=== PATIENT | female | born 1995 | race Caucasian/White ===

== ENCOUNTER 2019-04-06 13:43 | Emergency (ER) | payer BC, SELFPAY ==
[~2019-04-06] VITALS: Ht 165.1 cm; Wt 59.1 kg
[2019-04-06 13:44] VITALS: BP 114/66
--- NOTE | 2019-04-06 15:04 | REP ---
NASAL BONES: Four views of the nasal bones performed. No fracture is seen of the nasal bones. Maxillary spines appear intact. Visualized paranasal sinuses demonstrate no air fluid levels. IMPRESSION: No radiographic evidence of nasal bone fracture. Electronically Signed by Galen Dasilva MD 04/06/2019 04:36 P
[2019-04-06] MEDS ORDERED: CIPR-249 PO (15:19)
== END 2019-04-06 15:40 | disposition home or self-care (01) ==
LOC: M ED 13:43
DX: S00.83XA Contusion of other part of head, initial encounter (principal); Y04.8XXA Assault by other bodily force, initial encounter; Y92.89 Other specified places as the place of occurrence of the external cause; N39.0 Urinary tract infection, site not specified

== ENCOUNTER 2019-04-08 18:55 | Emergency (ER) | payer SELFPAY ==
[~2019-04-08] VITALS: Ht 165.1 cm; Wt 59.1 kg
[~2019-04-08 18:55] MED LIST: CIPR-249 PO
[2019-04-08] MEDS ORDERED: METOCLOPRAMIDE INJ 10MG/2ML VIAL (J2765) IV ONE (20:15)
[2019-04-08] MEDS ORDERED: NS 1,000 ML IV ONE (20:15)
[2019-04-08 20:31] LABS: BASO % 0.2 % (0.0-1.0); EOS % 0.3 % (0.0-3.0); HEMATOCRIT 39.6 % (36.0-47.0); HEMOGLOBIN 13.5 g/dl (12.0-15.5); LYMPH # 0.8 10^3/uL (1.5-6.5); LYMPH % 8.3 % (24.0-44.0); MEAN CORPUSCULAR HEMOGLOBIN 31.9 pg (27.0-33.0); MEAN CORPUSCULAR HGB CONC 34.1 g/dl (32.0-36.5); MEAN CORPUSCULAR VOLUME 93.6 fl (80.0-96.0); MONO # 1.3 10^3/uL (0.0-0.8); MONO % 13.7 % (0.0-5.0); NEUTROPHILS # 7.2 10^3/uL (1.8-7.7); NEUTROPHILS % 77.1 % (36.0-66.0); PLATELET COUNT, AUTOMATED 253 10^3/uL (150-450); RED BLOOD COUNT 4.23 10^6/uL (4.00-5.40); WHITE BLOOD COUNT 9.4 10^3/uL (4.0-10.0)
[2019-04-08] MEDS ORDERED: REGL10TA6 PO (21:38)
[2019-04-08] MEDS ORDERED: KEFL500C17 PO (21:38)
[2019-04-08 21:55] VITALS: BP 96/68
== END 2019-04-08 21:57 | disposition home or self-care (01) ==
LOC: M ED 18:55
DX: N10 Acute pyelonephritis (principal); R11.2 Nausea with vomiting, unspecified
CPT/HCPCS: 80047; 81001; 85025; 96361; 96374; 99284; J2765

== ENCOUNTER 2020-03-12 18:32 | Emergency (ER) | payer MEDICAID, OTHER, SELFPAY ==
[~2020-03-12] VITALS: Ht 165.1 cm; Wt 66.9 kg
[~2020-03-12 18:32] MED LIST changes: +KEFL500C17 PO; +REGL10TA6 PO
[2020-03-12] MEDS ORDERED: GI COCKTAIL 50ML BTL(HYOSCYAMINE/MAALOX/LIDOCAINE VISCOUS)(1:3:1) PO ONE (19:00)
[2020-03-12] MEDS ORDERED: METOCLOPRAMIDE INJ 10MG/2ML VIAL (J2765 PER 1) IV ONE (19:00)
[2020-03-12 19:11] LABS: BASO % 0.1 % (0.0-1.0); EOS # 0.1 10^3/uL (0.0-0.5); EOS % 0.8 % (0.0-3.0); HEMATOCRIT 36.5 % (36.0-47.0); HEMOGLOBIN 12.5 g/dl (12.0-15.5); LYMPH # 2.5 10^3/uL (1.5-5.0); LYMPH % 33.1 % (24.0-44.0); MEAN CORPUSCULAR HEMOGLOBIN 31.2 pg (27.0-33.0); MEAN CORPUSCULAR HGB CONC 34.2 g/dl (32.0-36.5); MONO # 0.6 10^3/uL (0.0-0.8); MONO % 8.1 % (0.0-5.0); NEUTROPHILS # 4.4 10^3/uL (1.5-8.5); NEUTROPHILS % 57.6 % (36.0-66.0); PLATELET COUNT, AUTOMATED 246 10^3/uL (150-450); RED BLOOD COUNT 4.01 10^6/uL (4.00-5.40); WHITE BLOOD COUNT 7.7 10^3/uL (4.0-10.0)
[2020-03-12 19:48] LABS: ALBUMIN 4.1 GM/DL (3.2-5.2); BILIRUBIN,DIRECT 0.1 MG/DL (0.0-0.2); BILIRUBIN,TOTAL 0.5 MG/DL (0.2-1.0); TOTAL PROTEIN 7.2 GM/DL (6.4-8.2)
--- NOTE | 2020-03-12 20:04 | REPVR ---
PROCEDURE INFORMATION: Exam: US Abdomen Limited, Right Upper Quadrant Exam date and time: 03/12/2020 7:36 PM Age: 24 years old Clinical indication: Abdominal pain; Acute; ; Additional info: Ruq/epigastric pain, +preg TECHNIQUE: Imaging protocol: Real-time ultrasound of the abdomen with image documentation. Examination was focused on the right upper quadrant. COMPARISON: No relevant prior studies available. FINDINGS: Liver: Normal. No masses. Gallbladder: Gallbladder is relatively contracted. No gallstones seen Common bile duct: Common bile duct measures 0.44 cm. Pancreas: Pancreatic tail is not well seen due to bowel gas. The head and neck appear normal Right kidney: Right kidney measures 10.7 x 5.2 x 4.9 cm. Lower pole of the right kidney not well seen due to bowel gas. No hydronephrosis in the visualized portion of the right kidney IMPRESSION: 1. No acute fine Electronically signed by: Kasey Bell On 03/12/2020 20:04:39 PM
[2020-03-12] MEDS ORDERED: REGL10TA6 PO (20:19)
[2020-03-12 20:29] VITALS: BP 118/54
== END 2020-03-12 20:33 | disposition home or self-care (01) ==
LOC: M ED 18:32
DX: O99.89 Other specified diseases and conditions complicating pregnancy, childbirth and the puerperium (principal); R10.13 Epigastric pain; R11.0 Nausea; Z3A.01 Less than 8 weeks gestation of pregnancy
CPT/HCPCS: 76705; 80047; 80076; 83690; 84702; 85025; 96374; 99284; J2765

== ENCOUNTER → 2020-03-29 | Outpatient (REF) | payer OTHER ==
[~2020-03-29] MED LIST changes: +AUGM875T28 PO; +HYDR-3713 PO
[2020-03-29 18:27] LABS: HEMATOCRIT 35.4 % (36.0-47.0); HEMOGLOBIN 12.3 g/dl (12.0-15.5); MEAN CORPUSCULAR HEMOGLOBIN 31.7 pg (27.0-33.0); MEAN CORPUSCULAR HGB CONC 34.7 g/dl (32.0-36.5); MEAN CORPUSCULAR VOLUME 91.2 fl (80.0-96.0); PLATELET COUNT, AUTOMATED 294 10^3/uL (150-450); RED BLOOD COUNT 3.88 10^6/uL (4.00-5.40); WHITE BLOOD COUNT 6.8 10^3/uL (4.0-10.0)
[2020-03-29 19:44] LABS: HCG, SERUM QUANTITATIVE 99629 MIU/ML
[2020-03-30 10:32] LABS: HEPATITIS B SURFACE ANTIGEN NEGATIVE (NEGATIVE)
[2020-03-30 10:59] LABS: HEPATITIS C VIRUS ABY INDEX 0.1 INDEX (<0.8)
[2020-03-30 11:00] LABS: HIV 1&2 SCREEN CENTAUR NEGATIVE (NEGATIVE)
== END ==
LOC: M LAB REF 16:43
PROVIDERS: ATTEND Obstetrics & Gynecology
DX: O36.80X0 Pregnancy with inconclusive fetal viability, not applicable or unspecified (principal)

== ENCOUNTER → 2020-04-04 | Outpatient (CLI) | payer MEDICAID, OTHER ==
--- NOTE | 2020-04-04 10:29 | REP ---
REASON: supervision of normal . Transvesical imaging was obtained. Within the uterus, there is an anechoic structure with increased echoes surrounding it consistent with a decidual reaction. Within the gestational sac, there is echogenic material consistent with a pole, the mean crown-rump length measurement of which is consistent with a 0-tfqg-7-day gestational age. Based on that the estimated date of delivery is 11/07/2020. Doppler interrogation of the pole shows a heart rate of 172 beats per minute. No chorionic or subchorionic abnormality was noted. Evaluation of the maternal adnexal spaces showed no abnormalities. The technologist has made note on the worksheet that the gestational sac appears to be in the lower uterine segment. IMPRESSION: Early OB ultrasound as described above. Recommended followup.
== END ==
LOC: M WHC 06:50
PROVIDERS: ATTEND Advanced Practice Midwife
DX: O36.80X0 Pregnancy with inconclusive fetal viability, not applicable or unspecified (principal); Z3A.09 9 weeks gestation of pregnancy

== ENCOUNTER 2020-06-23 23:31 | Emergency (ER) | payer OTHER ==
[~2020-06-23] VITALS: Ht 167.6 cm; Wt 68.8 kg
[2020-06-23 23:31] VITALS: BP 123/77
[~2020-06-23 23:31] MED LIST changes: -AUGM875T28 PO; -HYDR-3713 PO
[2020-06-24] MEDS ORDERED: AUGMENTIN 875 MG TAB PO ONE (00:30)
[2020-06-24] MEDS ORDERED: NORCO 5/325MG TABLET (BULK FOR ED) PO ONE (00:30)
[2020-06-24] MEDS ORDERED: AUGM875T28 PO (00:37)
[2020-06-24] MEDS ORDERED: HYDR-3713 PO (00:37)
== END 2020-06-24 00:51 | disposition home or self-care (01) ==
LOC: M ED 23:31
DX: K02.9 Dental caries, unspecified (principal); K04.7 Periapical abscess without sinus; Z79.899 Other long term (current) drug therapy

== ENCOUNTER → 2020-08-10 | Outpatient (CLI) | payer OTHER ==
[~2020-08-10] MED LIST changes: +AUGM875T28 PO; +HYDR-3713 PO
[2020-08-10 11:27] LABS: HEMATOCRIT 34.6 % (36.0-47.0); HEMOGLOBIN 11.3 g/dl (12.0-15.5); MEAN CORPUSCULAR HGB CONC 32.7 g/dl (32.0-36.5); MEAN CORPUSCULAR VOLUME 95.1 fl (80.0-96.0); PLATELET COUNT, AUTOMATED 305 10^3/uL (150-450); RED BLOOD COUNT 3.64 10^6/uL (4.00-5.40); WHITE BLOOD COUNT 7.7 10^3/uL (4.0-10.0)
== END ==
LOC: M WUC 08:17
PROVIDERS: ATTEND Advanced Practice Midwife
DX: Z34.82 Encounter for supervision of other normal pregnancy, second trimester (principal); Z3A.00 Weeks of gestation of pregnancy not specified

== ENCOUNTER → 2020-08-17 | Outpatient (CLI) | payer OTHER | LOC: M LAB 08:21 | PROVIDERS: ATTEND Obstetrics & Gynecology | DX: R73.02 Impaired glucose tolerance (oral) (principal) ==

== ENCOUNTER → 2020-10-06 | Outpatient (REF) | payer OTHER | LOC: M LAB REF 12:45 | PROVIDERS: ATTEND Advanced Practice Midwife | DX: Z34.83 Encounter for supervision of other normal pregnancy, third trimester (principal) ==

== ENCOUNTER → 2020-10-27 | Outpatient (REF) | payer OTHER | LOC: M LAB REF 12:37 | PROVIDERS: ATTEND Obstetrics & Gynecology | DX: Z34.83 Encounter for supervision of other normal pregnancy, third trimester (principal) ==

== ENCOUNTER 2020-11-09 20:29 | Emergency (ER) | payer OTHER ==
[~2020-11-09] VITALS: Ht 167.6 cm; Wt 63.6 kg
--- OUTSIDE RECORDS SUMMARY | 2020-11-09 20:34 | CCD ---
Author Author [facility] Organization [facility] Address Unknown Phone Unavailable Care Team Providers Care Speech Therapist Early Intervention Name Role Phone Tiffany PARMAR Unavailable Unavailable Dille, E Seema DDS Unavailable Unavailable Dille, E Seema DDS Unavailable Unavailable Dille, E Seema DDS Unavailable Unavailable Dille, E Seema DDS Unavailable Unavailable NO, PCP Unavailable Unavailable Re-disclosure Warning The records that you are about to access may contain information from federally-assisted alcohol or drug abuse programs. If such information is present, then the following federally mandated warning applies: This information has been disclosed to you from records protected by federal confidentiality rules (42 CFR part 2). The federal rules prohibit you from making any further disclosure of this information unless further disclosure is expressly permitted by the written consent of the person to whom it pertains or as otherwise permitted by 42 CFR part 2. A general authorization for the release of medical or other information is NOT sufficient for this purpose. The Federal rules restrict any use of the information to criminally investigate or prosecute any alcohol or drug abuse patient.The records that you are about to access may contain highly sensitive health information, the redisclosure of which is protected by Article 27-F of the [facility] Public Health law. If you continue you may have access to information: Regarding HIV / AIDS; Provided by facilities licensed or operated by the [facility] Office of Mental Health; or Provided by the [facility] Office for People With Developmental Disabilities. If such information is present, then the following [facility] mandated warning applies: This information has been disclosed to you from confidential records which are protected by state law. State law prohibits you from making any further disclosure of this information without the specific written consent of the person to whom it pertains, or as otherwise permitted by law. Any unauthorized further disclosure in violation of state law may result in a fine or residential sentence or both. A general authorization for the release of medical or other information is NOT sufficient authorization for further disc losure. Allergies and Adverse Reactions Type Description Substance Reaction Status Data Source(s ) No Known Drug Allergies No Known Drug Allergies [facility] No Known Environmental Allergies No Known Environmental Al lergies [facility] No Known Food Allergies No Known Food Allergies [facility] Encounters Encounter Providers Location Date Indications Data Source(s ) Inpatient Attender: MARY Gutierrezant: PCP NO 10/31/2020 08:06:00 AM [facility] - 11/03/2020 03:15:00 PM [facility] Patient discharged. Outpatient Attender: MARY Hunter: PCP NO 09/26/2020 10:47:00 AM [facility] - 09/26/2020 11:47:00 AM [facility] Outpatient Attender: Seema DE LA ROSA 07/29/2020 09:42:00 A M [facility] Outpatient Attender: Seema DE LA ROSA 04/05/2020 11:03:00 A M [facility] Outpatient Attender: Seema CARNES 04/01/2020 12:02:18 A M [facility] Outpatient Attender: Seema DE LA ROSA 03/31/2020 04:05:[address] [facility] Outpatient Attender: Seema DE LA ROSA 03/31/2020 04:02:00 P M [facility] Outpatient Attender: Seema DE LA ROSA 03/31/2020 03:44:[address] [facility] Outpatient Attender: Seema DE LA ROSA 03/31/2020 03:44:[address] [facility] Outpatient Attender: Seema Sultana DDS [facility] 03/31/2020 03:42:04 P M EDT [facility] Outpatient [facility]: [facility] 03/31/2020 03:41:02 P M EDT [facility] Outpatient Attender: Seema Sultana DDS [facility] 03/31/2020 03:02:05 P M EDT [facility] Outpatient Attender: [facility] 03/31/2020 03:01:01 P M EDT [facility] [address] [address] 01/19/2020 12:00:00 AM EDT eCW1 (Critical access hospital) Insurance Providers Payer name Policy type / Coverage type Policy ID Covered alliance party ID Covered alliance party's relationship to thakkar Policy Thakkar Plan Information [employer] [id number] 2 [id number] [employer] - I/P [id number] 01 [id number] [employer] - O/P [id number] 01 [id number] [place] UNAVAILABLE S UNAVAILABLE HUMANA [place] O [id number] P [id number] [employer] [id number] SP [id number] [facility] [id number] SP [id number] [facility] O [id number] S [id number] Managed Care [facility] Community Plan P [id number] S [id number] Medicaid S [id number] EMEDNY [id number] SP [id number] SELF PAY ONLY [id number] SP [id number] BCBS [facility] [id number] SP [id number] Problems, Conditions, and Diagnoses Code Display Name Description Problem Type Effective Dates Data Source(s) 521.03 DENTAL CARIES EXTENDING INTO PULP DENTAL CARIES EXTEND ING INTO PULP 03/31/2020 03:43:15 PM EDT [facility] [id number] Labor and delivery complicat ed by cord around neck, without compression, not applicable or unspecified Labor and delivery complicated by cord a round neck, without compression, not applicable or unspecified Diagnosis 10/31/2020 08:06:00 AM [facility] A491 Streptococcal infection, unspecified sit e Streptococcal infection, unspecified site Diagnosis 10/31/2020 08:06:00 AM [facility] B009 Herpesviral infection, unspecified Herpesviral i nfection, unspecified Diagnosis 10/31/2020 08:06:00 AM [facility] [id number] 39 weeks gestation of 39 weeks gestation of Diagnosis 10/31/2020 08:06:00 AM [facility] O2343 Unspecified infection of urinary tract i n , third trimester Unspecified infection of urinary tract in , third trimester Diagnosis 10/31/2020 08:06:00 AM [facility] Z370 Single live Single live Diagnosis 10/31/2020 08:06:00 AM [facility] O9852 Other viral diseases complicating childb irth Other viral diseases complicating childbirth Diagnosis 10/31/2020 08:06:00 AM [facility] [id number] Other viral diseases complicating pregna ncy, third trimester Other viral diseases complicating , third trimester Diagnosis 10/31 08:06:00 AM [facility] Z362 Encounter for other screening follow-up Encounter for other screening follow-up Diagnosis 09/26/2020 10:47:00 AM [facility] [id number] Uterine size-date discrepancy, third tri mester Uterine size-date discrepancy, third trimester Diagnosis 09/26/2020 10:47:00 AM [facility] Surgeries/Procedures Procedure Description Date Indications Data Source(s) Delivery of Products of Conception, External Approach Delivery of Products of Conception, External Approach 11/01/2020 12:00:00 AM [facility] Introduction of Anesthetic Agent into Spinal Canal, Pe rcutaneous Approach Introduction of Anesthetic Agent into Spinal Canal, Percutaneous Approac 10/31/2020 12:00:00 AM [facility] Drainage of Amniotic Fluid, Therapeutic from Products of Conception, Via Natural or Artificial Opening Drainage of Amniotic Fluid, Therapeutic from Products of Conception, Via Natural or Artificial Opening 10/31/2020 12:00:00 AM [facility] Introduction of Other Anti-infective int o Peripheral Vein, Percutaneous Approach Introduction of Other Anti-infective int o Peripheral Vein, Percutaneous Approach 10/31/2020 12:00:00 AM [facility] Introduction of Other Therapeutic Substa nce into Female Reproductive, Via Natural or Artificial Opening Introduction of Other Therapeutic Substa nce into Female Reproductive, Via Natural or Artificial Opening 10/31/2020 12:00:00 AM [facility] Monitoring of Products of Conception, Ca rdiac Electrical Activity, External Approach Monitoring of Products of Conception, Ca rdiac Electrical Activity, External Approach 10/31/2020 12:00:00 AM [facility] Results ID Date Data Source [id number] 11/01/2020 05:39:00 PM [facility] Name Value Range Interpretation Code Description Data Yolande rce(s) Supporting Document(s) CBC W/AUTOMATED DIFF [facility] COMPLETE BLOOD COUNT Leukocytes [#/volume] in Blood by Automated count 9.5 10^3/uL 4.2 - 1 1.0 [facility] Erythrocytes [#/volume] in Blood by Automated count 3.46 10^6/uL 4. 20 - 5.40 L [facility] Hemoglobin [Mass/volume] in Blood 9.7 g/dL 12.0 - 16.0 L [facility] Hematocrit [Volume Fraction] of Blood by Automated count 30.0 % 3 7.0 - 47.0 L [facility] Erythrocyte mean corpuscular volume [Entitic volume] by Auto mated count 86.7 fL 81.0 - 101 [facility] Erythrocyte mean corpuscular hemoglobin [Entitic mass] by Automated count 28.0 pg 27.0 - 34.0 [facility] Erythrocyte mean corpuscular hemoglobin concentration [Mass/volume] by Automated count 32.3 g/dL 31.0 - 36.0 [facility] Erythrocyte distribution width [Ratio] by Automated count 12.6 % 11.5 - 14.5 [facility] Platelets [#/volume] in Blood by Automated count 230 10^3/uL 150 - 45 0 [facility] Platelet mean volume [Entitic volume] in Blood by Automated count 10.2 fL 7.4 - 10.4 [facility] Neutrophils/100 leukocytes in Blood by Automated count 70.3 % 37. 0 - 80.0 [facility] Lymphocytes/100 leukocytes in Blood by Manual count 20.0 % 25.0 - 40.0 L [facility] Monocytes/100 leukocytes in Blood by Automated count 9.0 % 3.0 - 8.0 H [facility] Eosinophils/100 leukocytes in Blood by Automated count 0.3 % 0.0 - 7.0 [facility] Basophils/100 leukocytes in Blood by Automated count 0.1 % 0.0 - 2.5 [facility] %IG 0.3 % 0.0 - 0.0 H [facility] Hospit al %NRBC 0.0 % 0.0 - 0.0 [facility] al Neutrophils [#/volume] in Blood by Automated count 6.66 10^3/uL 2.00 - 6.90 [facility] Lymphocytes [#/volume] in Blood by Automated count 1.90 10^3/uL 0.60 - 3.40 [facility] Monocytes [#/volume] in Blood by Automated count 0.85 10^3/uL 0.00 - 0.90 [facility] Eosinophils [#/volume] in Blood by Automated count 0.03 10^3/uL 0.00 - 0.70 [facility] Basophils [#/volume] in Blood by Automated count 0.01 10^3/uL 0.00 - 0.20 [facility] #IG 0.03 10^3/uL 0.00 - 0.10 [facility] ospital #NRBC 0.00 10^3/uL 0.00 - 0.00 [facility] ospital MANUAL DIFF NOT INDICATED [facility] RBC MORPH NOT INDICATED [facility] spital ID Date Data Source [id number] 10/31/2020 11:53:00 AM EST [facility] Name Value Range Interpretation Code Description Data Yolande rce(s) Supporting Document(s) ABO group [Type] in Blood A [facility] Rh [Type] in Blood POSITIVE [facility] AB SCREEN NEGATIVE NORMAL: NEGATIVE [facility] { ABO/RH REENTER A POSITIVE{ AB SCREEN RE-ENTER NEGATIVE ID Date Data Source [id number] 10/31/2020 10:00:00 AM [facility] Name Value Range Interpretation Code Description Data Yolaned rce(s) Supporting Document(s) BASIC METABOLIC PANEL [facility] BASIC METABOLIC PANEL Sodium [Moles/volume] in Serum or Plasma 137 mEq/L 134 - 153 [facility] Potassium [Moles/volume] in Serum or Plasma 4.2 mEq/L 3.6 - 5.0 [facility] Chloride [Moles/volume] in Serum or Plasma 104 mEq/L 98 - 107 [facility] Carbon dioxide, total [Moles/volume] in Serum or Plasma 22 MEQ/L 22 - 30 [facility] Glucose [Mass/volume] in Serum or Plasma 81 MG/DL 70 - 99 [facility] BUN 10 MG/DL 7 - [facility] Creatinine [Mass/volume] in Serum or Plasma 0.5 MG/DL 0.7 - 1.5 L [facility] BUN/CREAT 20 8 - 27 [facility] Calcium [Mass/volume] in Serum or Plasma 8.8 MG/DL 8.4 - 10.2 [facility] Anion gap 3 in Serum or Plasma 11.0 mmol/L 8.0 - 16.0 [facility] AGE 24 yrs [facility] al AFR AMER GFR >60 mL/min [facility] Ho spital NON-AA GFR >60 mL/min [facility] ital Male GFR Inter prentation 20-49 yrs >60 mL/min Normal 50-59 yrs >56 mL/min Normal 60-69 yrs >49 mL/min Normal 70-79yrs >42 mL/min Normal 80 and above >35 mL/min Normal Female GFR Interpretation 20-39 yrs >60 mL/min Normal 40-49 yrs >58 mL/min Normal 50-59 yrs >51 mL/min Normal 60-69 yrs >45 mL/min Normal 70-79 yrs >39 mL/min Normal 80 and above >32 mL/min Normal ID Date Data Source [id number] 10/31/2020 09:33:00 AM EST [facility] Name Value Range Interpretation Code Description Data Yolande rce(s) Supporting Document(s) Prothrombin time (PT) 12.6 SECONDS 11.0 - 15.5 [facility] INR in Platelet poor plasma by Coagulation assay 0.90 0.93 - 1. 23 L [facility] aPTT in Blood by Coagulation assay 27.5 SECONDS 24.8 - 36.7 [facility] \\BLDo\\INR INTERPRETATION\\BLDx\\ Therapeutic range for Coumadin and related oral anticoagulants. - International Normalized Ratio (INR): 2.0 - 3.0 for Venous Thrombosis, Pulmonary Embolus, Tissue heart valves, Acute SD Atrial Fibrillation, Valvular heart disease and recurrent Systemic Embolism. - International Normalized Ratio (INR): 2.5 - 3.5 for Mechanical Prosthetic valve. ID Date Data Source [id number] 10/31/2020 09:24:00 AM EST [facility] Name Value Range Interpretation Code Description Data Yolande rce(s) Supporting Document(s) CBC W/AUTOMATED DIFF [facility] COMPLETE BLOOD COUNT Leukocytes [#/volume] in Blood by Automated count 6.1 10^3/uL 4.2 - 1 1.0 [facility] Erythrocytes [#/volume] in Blood by Automated count 3.46 10^6/uL 4. 20 - 5.40 L [facility] Hemoglobin [Mass/volume] in Blood 9.7 g/dL 12.0 - 16.0 L [facility] Hematocrit [Volume Fraction] of Blood by Automated count 29.7 % 3 7.0 - 47.0 L [facility] Erythrocyte mean corpuscular volume [Entitic volume] by Auto mated count 85.8 fL 81.0 - 101 [facility] Erythrocyte mean corpuscular hemoglobin [Entitic mass] by Automated count 28.0 pg 27.0 - 34.0 [facility] Erythrocyte mean corpuscular hemoglobin concentration [Mass/volume] by Automated count 32.7 g/dL 31.0 - 36.0 [facility] Erythrocyte distribution width [Ratio] by Automated count 12.6 % 11.5 - 14.5 [facility] Platelets [#/volume] in Blood by Automated count 248 10^3/uL 150 - 45 0 [facility] Platelet mean volume [Entitic volume] in Blood by Automated count 10.4 fL 7.4 - 10.4 [facility] Neutrophils/100 leukocytes in Blood by Automated count 63.3 % 37. 0 - 80.0 [facility] Lymphocytes/100 leukocytes in Blood by Manual count 25.4 % 25.0 - 40.0 [facility] Monocytes/100 leukocytes in Blood by Automated count 10.3 % 3.0 - 8.0 H [facility] Eosinophils/100 leukocytes in Blood by Automated count 0.5 % 0.0 - 7.0 [facility] Basophils/100 leukocytes in Blood by Automated count 0.2 % 0.0 - 2.5 [facility] %IG 0.3 % 0.0 - 0.0 H [facility] Hospit al %NRBC 0.0 % 0.0 - 0.0 [facility] al Neutrophils [#/volume] in Blood by Automated count 3.89 10^3/uL 2.00 - 6.90 [facility] Lymphocytes [#/volume] in Blood by Automated count 1.56 10^3/uL 0.60 - 3.40 [facility] Monocytes [#/volume] in Blood by Automated count 0.63 10^3/uL 0.00 - 0.90 [facility] Eosinophils [#/volume] in Blood by Automated count 0.03 10^3/uL 0.00 - 0.70 [facility] Basophils [#/volume] in Blood by Automated count 0.01 10^3/uL 0.00 - 0.20 [facility] #IG 0.02 10^3/uL 0.00 - 0.10 [facility] ospital #NRBC 0.00 10^3/uL 0.00 - 0.00 [facility] ospital MANUAL DIFF NOT INDICATED [facility] RBC MORPH NOT INDICATED [facility] spital ID Date Data Source [id number] 11/03/2020 04:18:00 PM EST [facility] Name Value Range Interpretation Code Description Data Yolande rce(s) Supporting Document(s) CULTURE URINE [facility] spital _CULTURE URINE_$$[id number]$$[id number]$$[id number]$$[id number]$$[id number]$$[id number]$$[id number]$$[id number]$$[id number]$$ 887693$$[id number]$$403582$$249208$$068406$$612819$$642528$$121311$$118699$$857065$$ 586429$$401265$$968854$$924371$$[id number]$$[id number]$$[id number]$$[id number] -- Continued on next page --Patient: VENANCIO MARK Order: [id number] Page 2Culture: CULTURE URINE Status: Final ==== -- Continued on next page --Patient: VENANCIO MARK Order: [id number] Page 2Culture: CULTURE URINE Status: Prelim =====$$[id number]$$[id number] DATE/TIME: 11/03/2020 16:07Culture: CULTURE URINE Status: FinalIsolate 1 Viridans streptococcus group Flag: . . . . . . .3Greater than 100,000 colony forming units per mLSusceptibility not normally performed on this organism. Previous result entered on 11/02/2020 15:58 ET Microbiological testing to rule out the presence of possible pathogensis in progress.Urine Culture,Comprehensive: T2Tnutoapk streptococcus groupP1 Test performed by: [facility] Mario Alberto MILLER #: [id number] [address] [place] [address] [id number] [place] [address]Znlxucs Director : Elkin Pascual MD NPI #:Ed Case Manager : [email or web address] REF 11/03/[email or web address].SENT REF ID Date Data Source [id number] 10/31/2020 12:28:00 PM [facility] Name Value Range Interpretation Code Description Data Yolande rce(s) Supporting Document(s) [facility] R [facility] COLOR yellow NORMAL: Yellow [facility] CLARITY hazy NORMAL: Clear [facility] spital Specific gravity of Urine by Test strip 1.010 1.001 - 1.030 [facility] pH 7 5 - 9 [facility] al Glucose [Mass/volume] in Urine by Test strip NORM NORMAL: Negat [facility] Bilirubin.total [Presence] in Urine by Test strip NEG NORMAL: Negative [facility] Ketones [Presence] in Urine by Test strip NEG NORMAL: Negative [facility] Protein [Mass/volume] in Urine by Test strip 100 NORMAL: Negat allan [facility] Nitrite [Presence] in Urine by Test strip NEG NORMAL: Negative [facility] BLOOD 150 NORMAL: Negative [facility] Leukocyte esterase [Presence] in Urine by Test strip 500 ROSAURA L: Negative [facility] Urobilinogen [Mass/volume] in Urine by Test strip NOR less gill n 1.0 mg/dL [facility] MICROSCOPIC See Below [facility] ital WBC 1 - 3 NORMAL: NONE SEEN [facility] EPITHELIAL MANY NORMAL: NONE SEEN A [facility] Bacteria [Presence] in Urine sediment by Light microscopy 1+ SMALL NORMAL: NONE SEEN [facility] ID Date Data Source [id number] 09/29/2020 10:42:00 AM [facility] [address] [place] [address] PHONE: [phone] FAX: [phone] Name .................. : VENANCIO MARK Acct Number.................. : [id number] ROOM. ................. : MR Number ................... : [id number] Stay type ............. : O/P Discharge Date......... ... : 09/26/20 Admit Date ......... : 09/26/20 Admit Phys .................... : GHULAM GRANT Date of ....... : 1995 Family Phys ................... : NO PCP Phone .................. : [phone] Age ................................ : 24 Film# .................. .:[id number] Sex ................................. : F Unsigned transcriptions are preliminary reports and do not represent a medical or legal document OB FOLLOW UP [id number] COMPLETE:09/26/20 11:38 KNB 1406 (REASON FOR OBS: EFW, STACEY, size/date discrepancy OB SONOGRAM, 09/26/20: INDICATION: weight, size, date, STACEY. FINDINGS: A single live intrauterine gestation is identified in transverse lie with head to the maternal left. There is an anterior placenta without evidence of previa. STACEY is subjectively within normal limits and measures 14.2 cm. Cervical length is 52 mm. heart rate 142 beats per minute. weight is 2,759 grams, which is in the 84th percentile. BPD is 91 mm, 36 weeks 5 days +/- 3 weeks. Head circumference 328 mm, 37 weeks 2 days +/- 3 weeks. Abdominal circumference 322 mm, 36 weeks 1 day +/- 3 weeks. Femur length 66 mm, 34 weeks 1 day +/- 3 weeks. The HC/AC ratio is normal at 1.02. Cephalic index is normal at 78. IMPRESSION: Single live intrauterine gestation with appropriate normal growth as discussed above. Examination dictated by ALEXA Sahu. Examination was reviewed with Blanquita Ibarra MD, radiologist at the time of this dictation. Electronically Reviewed and Signed By Blanquita Ibarra MD , 09/29/20 10:42, KGG Transcribe Initials: SSR, Transcribe Date: 09/26/20 12:25, Dictation Date: Copy for: GHULAM Allen via fax Copy for: [address] [place] [address] REC Page 1 of 1 Name Value Range Interpretation Code Description Data Yolande rce(s) Supporting Document(s) ID Date Data Source [id number] 07/11/2020 12:00:00 AM EDT [facility] Mary Parmar Cnm Patient Name: MANUELITO [id number] [facility] Date of : 1995[place] [address] Date of Exam: 07/11/2020PH#: Fax: [phone] EXAM: US OB, FOLLOW-UP (GROWTH, ORGAN SYSTEMS)/FETUSCLINICAL INFORMATION: Followup intracardiac echogenic focus.LMP: 01/28/2020 = 23 weeks 4 days, JHONNY: 11/03/2020GA by first study: 23 weeks 4 days, JHONNY: 11/03/2020Gravida 3, Para 1, Ab 1Cervical Length: 3.9 cmFetal Heart Rate: 130 BPMType of Gestation: SingletonIntrauterine in vertex presentation.Placental Location: Anterior, Grade 1Amniotic fluid volume: Normal.No change in the echogenic foci in the heart.Accredited by the [employer] in Obstetrical Ultrasound.ARACELI Baca/Stanley you for referring JAS EPPS to our office. Electronically Signed - KELSEY LOMBARDI DO 07/11/20 16:50 Name Value Range Interpretation Code Description Data Yolande rce(s) Supporting Document(s) ID Date Data Source [id number] 06/21/2020 12:00:00 AM EDT [facility] Mary Parmar Cnm Patient Name: JAS [id number] [facility] Date of : 1995[place] [address] Date of Exam: 06/21/2020#: Fax: [phone] EXAM: US OB 2ND & 3RD TRIMESTER, COMPLETE- SINGLE FETUSCLINICAL INFORMATION: Supervision of . 3, Para 1, Ab 1LMP: 01/28/2020 = 20 weeks 5 days, JHONNY(LMP) = 11/03/2020GA by today's US: 21 weeks 1 day, JHONNY (expected) = 10/31/2020Fetal Number: SingletonFetal Position: variableFetal Heart Rate: 132 BPMPlacental Position: Anterior, Grade 1Amniotic Fluid Volume: NormalCervix Length: 3.9 cmFETAL MEASUREMENTS:BPD: 4.8 cm = 20 weeks 4 daysHC: 18.6 cm = 20 weeks 6 daysAC: 15.9 cm = 21 weeks 0 daysFL: 3.3 cm = 20 weeks 1 dayHL: 3.7 cm = 22 weeks 5 daysEstimated Weight: 369 grams, 13 ounces, 45th percentileThe following structures are visualized and are unremarkable:Cranium, cavum, cerebellum, posterior fossa- cisterna magna, choroid plexus,midline falx, lateral ventricles, orbits, face- profile, face-lips/mouth,neck, 4-chamber heart, RVOT, LVOT, diaphragm, stomach, kidneys, bladder,abdominal wall, cord insertion, umbilical arteries, 3-vessel cord, colorDoppler, spine and upper and lower extremities.There was an echogenic foci noted in the right ventricle of the heart.Accredited by the [employer] in Obstetrical Ultrasound.ARACELI Baca/Stanley irvin for referring JAS EPPS to our office. Electronically Signed - KELSEY LOMBARDI DO 06/21/20 16:59 Name Value Range Interpretation Code Description Data Yolande rce(s) Supporting Document(s) ID Date Data Source [id number] 03/31/2020 03:10:23 PM EDT [facility] Current Problems: DENTAL CARIES EXTENDIN G INTO PULP (ICD-521.03) (ICD10- K02.63)Problem list reviewed during this update.No known problems.Current Medications: AMOXICILLIN 500 MG CAPS (AMOXICILLIN) 1 tablet by mouth every 8 hours until gone; Route: ORALMedication list reviewed during this update.No known medications.Allergy list reviewed during this update.No known allergies. Dental Chart: Procedures:Type - CDT Code - Description B - (D0220) Intraoral, periapical, first radiographic image on Tooth # 18 (Performed by Seema Sultana DDS) B - (D0140) Limited oral evaluation - problem focused on Tooth # 18 (Performed by Seema Sultana DDS) Chart Notes:malick (Mar 31 2020 3:42PM): Additional PPE requirements due to COVID-19 in the dental setting, N95, surgical mask, hair covering, gown and shield.S: CC:" I have some mouth pain on the left lower and upper side of my mouth."O: RMHx (-) 10 weeks HPI: [address]: 8 BP: 119/74 P: 72, PA 18 and 19, Large decay in both poss to palp and percussion, A: ELISABET recommends RCT and crown or ext. , DX:caries into pulpP:Refer to Multi service for RCT and [place]. Per Pt wants RCT and CrownE-scribe Amoxicillin 500mg q8h until gone dispense 21 tabs zero refills Archie LinalInformed Pt about new pain management policy of the clinic regarding about narcotic,told pt to take tylenol 500mg every 4 to 6 hrs for pain when needed. Assisted By: PD NV: Hieu BHANDARI Seema by malick (03/31/2020 3:41 PM): Tooth Notes and Watches:- Tooth 18 Note: Referred to [facility] for RCT and [place] Seema BHANDARI by gerardo (03/31/2020 3:33 PM): - Tooth 19 Note: Referred to [facility] for RCT and [place] Seema BHANDARI by gerardo (03/31/2020 3:33 PM): Assessment & Plan Problems:Added: DENTAL CARIES EXTENDING INTO PULP (ICD-521.03) (CUE24-Q74.63)Medications:AMOXICILLIN 500 MG CAPSMedication Changes:New Prescription:AMOXICILLIN 500 MG CAPS-1 tablet by mouth every 8 hours until gone Qty: 21 Method: Allergies:No Known Allergies (updated 03/31/2020) Orders:Multi-Service Referral [[id number]] Name Value Range Interpretation Code Description Data Yolande rce(s) Supporting Document(s) Procedure Vital Signs ID Date Data Source UNK Name Value Range Interpretation Code Description Data Source(s) Diastolic blood pressure 73 mm[Hg] 73 mm[Hg] eCW1 ([facility]) Systolic blood pressure 111 mm[Hg] 111 mm[Hg] e CW1 ([facility]) Body temperature 99.3 [degF] 99.3 [degF] eCW1 ( [facility]) Respiratory rate 16 /min 16 /min eCW1 ([facility]) Heart rate 80 /min 80 /min eCW1 ([facility]) Body mass index (BMI) [Ratio] 31.04 kg/m2 31.04 kg/m2 eCW1 ([facility]) Body height 55.5 [in_us] 55.5 [in_us] eCW1 ([facility]) Body weight Measured 136 [lb_av] 136 [lb_av] eC W1 ([facility]) ID Date Data Source [id number] 11/08/2020 09:48:07 AM EST [facility] Name Value Range Interpretation Code Description Data Source(s) WEIGHT RECORDED 183.00 pounds 183.00 pounds [facility] Height 66 Inches 066 Inches [facility]
[2020-11-09] MEDS ORDERED: KETOROLAC 60MG 2ML VIAL IM ONE (22:00)
[2020-11-09] MEDS ORDERED: LIDOCAINE 4% CREAM 5GM (LMX4) TOP ONE (22:00)
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
[2020-11-09 22:41] VITALS: BP 113/67
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
[2020-11-09] MEDS ORDERED: ANEC4CRE3 TOP (23:00)
== END 2020-11-09 23:09 | disposition home or self-care (01) ==
LOC: M ED 20:29
DX: S80.02XA Contusion of left knee, initial encounter (principal); S16.1XXA Strain of muscle, fascia and tendon at neck level, initial encounter; V40.6XXA Car passenger injured in collision with pedestrian or animal in traffic accident, initial encounter; Y92.9 Unspecified place or not applicable; Y93.9 Activity, unspecified; Y99.9 Unspecified external cause status
CPT/HCPCS: 73564; 96372; 99283; J1885